=== PATIENT | male | born 1970 | race Two or more races ===

== ENCOUNTER 2025-05-18 20:18 | Inpatient (IN) | payer MEDICAID ==
[~2025-05-18] VITALS: Ht 177.8 cm; Wt 108.6 kg
[~2025-05-18 20:18] MED LIST: ATEN-60 PO; DOCU-265 PO; TAMS-35 PO
--- NOTE | 2025-05-18 21:21 | ED.PDOC ---
GI ASSESSMENT HPI Comments 54y M who presents to the ED for chief complaint of GI bleeding. Pt states he has been having bright red blood per rectum with noted blood in bowel movement for the past 5x days. Pt states today 3x blood in bowel movement episodes today. Pt otherwise denies any recent changes to diet or sick contacts. Pt has noted abdominal cramping but otherwise denies any other symptoms. Pt only has noted past medical history of HTN. Pt in the ED has noted BP of 154/109 but otherwise has noted stable vitals. Chief Complaint: GI Bleed Time Seen by MD: 21:00 Reviewed Notes: Medications, Allergies Allergies: Coded Allergies: NO KNOWN ALLERGIES (Unverified , 01/06/17) Home Meds Active Scripts Tamsulosin Hcl (Flomax) 0.4 Mg Cap, 0.4 MG PO QPM, #14 CAP Prov:JAGDEEP ROYAL MD 01/08/17 Docusate Sodium (Docusate Sodium) 100 Mg Cap, 100 MG PO BIDPRN PRN for FOR CONSTIPATION, #30 CAP Prov:JAGDEEP ROYAL MD 01/08/17 Reported Medications Atenolol (Atenolol) 25 Mg Tab, 25 MG PO DAILY for 30 Days, MG 01/06/17 Information Source: Patient, Spouse Mode of Arrival: Ambulatory Past Medical History PAST MEDICAL HISTORY: HTN Surgical History: Denies all surgeries Family History Family History: Unknown Social History Smoker: Non-Smoker Alcohol: Denies ETOH Use Drugs: Denies Drug Use Lives In: Home All Other Systems: Reviewed and Negative (see HPI) Physical Exam General Appearance: No Apparent Distress, Obese HEENT: Normal ENT Inspection, PERRL/EOMI Neck: Full Range of Motion, Non-Tender, Normal, Normal Inspection Respiratory: Chest Non-Tender, Lungs Clear, No Accessory Muscle Use, No Respiratory Distress, Normal Breath Sounds Cardiovascular: No Edema, No JVD, No Murmur, No Gallop, Normal Peripheral Pulses, Regular Rate/Rhythm Breast Exam: Deferred Gastrointestinal: No Organomegaly, No Pulsatile Mass, Normal Bowel Sounds, Soft, Tenderness Genitalia: Deferred Pelvic: Deferred Rectal: Deferred, Hemorrhoids, Other (Rectal bleeding bright red) Extremities: No calf tenderness, Normal capillary refill, Normal inspection, Normal range of motion, Non-tender, No pedal edema Neurologic: Alert, sales engagement manager II-XII nml as Tested, No Motor Deficits, Normal Affect, Normal Mood, No Sensory Deficits Cerebellar Function: Normal Reflexes: Normal Skin: Dry, Normal Color, Warm Peripheral Pulses: 1+ carotid (R), 1+ carotid (L) Lymphatic: No Adenopathy Was a procedure done? Was a procedure done?: No GI differential Dx Differential Diagnosis: Constipation, Diverticular disease, Gastroenteritis, GI hemorrhage, Inflammatory BD, Dehydration, Anemia, Stress Ulcer Other Differential Diagnosis colitis, hemorrhoids, GI bleed, X-Ray, Labs, Meds, VS Vital Signs Date Time Temp Pulse Resp B/P (MAP) Pulse Ox O2 Delivery O2 Flow Rate FiO2 05/18/25 20:19 98.6 77 18 154/109 97 98.6 Lab Test 05/18/25 21:08 Range/Units White Blood Count 6.8 4.4-10.8 10^3/uL Red Blood Count 4.73 4.5-5.90 10^6/uL Hemoglobin 14.5 13.5-17.5 g/dL Hematocrit 40.5 L 41.0-53.0 % Mean Corpuscular Volume 85.7 80.0-100.0 fL Mean Corpuscular Hemoglobin 30.6 28.0-32.0 pg Mean Corpuscular Hemoglobin Concent 35.7 32.0-36.0 g/dL Red Cell Distribution Width 14.1 11.8-14.3 % Platelet Count 219 140-450 10^3/uL Mean Platelet Volume 7.5 6.9-10.8 fL Neutrophils (%) (Auto) 51.2 37.0-80.0 % Lymphocytes (%) (Auto) 37.9 10.0-50.0 % Monocytes (%) (Auto) 7.8 0.0-12.0 % Eosinophils (%) (Auto) 2.5 0.0-7.0 % Basophils (%) (Auto) 0.6 0.0-2.0 % Neutrophils # (Auto) 3.5 1.6-8.6 10 ^3/uL Lymphocytes # (Auto) 2.6 0.4-5.4 10 ^3/uL Monocytes # (Auto) 0.5 0-1.3 10 ^3/uL Eosinophils # (Auto) 0.2 0-0.8 10 ^3/uL Basophils # (Auto) 0 0-0.2 10 ^3/uL Nucleated Red Blood Cells 0.1 % Sodium Level 142 136-145 mmol/L Potassium Level 4.2 3.5-5.1 mmol/L Chloride Level 108 H 98-107 mmol/L Carbon Dioxide Level 25 20-31 mmol/L Anion Gap 9 5-15 Blood Urea Nitrogen 13 9-23 mg/dL Creatinine 1.36 H 0.700-1.30 mg/dL Glomerular Filtration Rate Calc 63 >90 mL/min BUN/Creatinine Ratio 9.6 L 10.0-20.0 Serum Glucose 98 74-106 mg/dL Calcium Level 8.9 8.7-10.4 mg/dL X-Ray, Labs, Meds, VS Comment Course in the emergency department eventful patient came in because of the GI bleeding mostly red profuse CBC normal BNP pending CT abdomen pending Dr. Seymour to follow Time of 1ST Reevaluation: 21:30 Reevaluation 1ST: Unchanged Time of 2ND Reevaluation: 22:44 Reevaluation 2ND: Unchanged Consultation: PCP, GI Patient Education/Counseling: Diagnosis, Treatment, Prognosis, Need For Follow Up Family Education/Counseling: Diagnosis, Treatment, Prognosis, Need For Follow Up Assigned to Dr. dr seymour Change of Shift?: Yes SEPSIS Sepsis Screen Date sepsis recognized/suspect: May 18, 2025 Time Sepsis recognized/suspect: 2022 Recent Procedure: No On Antibiotic Therapy: No Respiratory Rate >20: No Heart Rate >90: No Temp<36 C (96.8 F) or >38.3 C: No SBP <90 or MAP <65 mmHG: No New Acute Mental Status Change: No Is the patient on CPAP, BIPAP,: No Physician Orders Heplock Iv (05/18/25 20:55) Sodium Chloride 0.9% (05/18/25 21:00) Ct Ab Pel With Iv Con Only (05/18/25 20:55) Hemoglobin & Hematocrit (05/18/25 22:41) Sodium Chloride 0.9% (05/18/25 23:00) Vital Signs Date Time Temp Pulse Resp B/P (MAP) Pulse Ox O2 Delivery O2 Flow Rate FiO2 05/18/25 20:19 98.6 77 18 154/109 97 98.6 Laboratory Tests Test 05/18/25 21:08 White Blood Count 6.8 10^3/uL (4.4-10.8) Departure 1 Departure Time of Disposition: 22:44 Impression: Primary Impression: Rectal bleeding Disposition: 09 ADMITTED INPATIENT Admit to: Tele Condition: Guarded Discharged With: Self Critical Care Note Critical Care Time?: No Stability Stability form required: No Heart Score Heart Score: Heart Score Response (Comments) Value History N/A 0 EKG N/A 0 Age 45-64 1 Risk Factors 1 or 2 risk factors 1 Troponin N/A 0 Total 2 I personally scribed for GALI MONTEMAYOR MD ([email or web address]) on 05/18/25 at 21:21. Electronically submitted by Yaw Sampson ([facility]). GALI MONTEMAYOR MD May 18, 2025 21:21 JULIET SEYMOUR DO May 18, 2025 22:51
[2025-05-18 21:25] LABS: Hematocrit 40.5 % (41.0-53.0); Hemoglobin 14.5 g/dL (13.5-17.5); Mean Corpuscular Hemoglobin 30.6 pg (28.0-32.0); Mean Corpuscular Volume 85.7 fL (80.0-100.0); Nucleated Red Blood Cells % 0.1 %
[2025-05-18 21:48] LABS: Potassium 4.2 mmol/L (3.5-5.1); Sodium 142 mmol/L (136-145)
[2025-05-18 21:49] LABS: Anion Gap 9 (5-15); Carbon Dioxide 25 mmol/L (20-31)
[2025-05-18 21:50] LABS: Calcium 8.9 mg/dL (8.7-10.4)
[2025-05-18 21:54] LABS: BUN/Creatinine Ratio 9.6 (10.0-20.0); Blood Urea Nitrogen 13 mg/dL (9-23); Glucose 98 mg/dL (74-106)
[2025-05-18 22:13] LABS: Chloride 108 mmol/L (98-107)
[2025-05-18 23:16] LABS: Hematocrit 42.2 % (41.0-53.0); Hemoglobin 14.7 g/dL (13.5-17.5)
--- NOTE | 2025-05-18 23:29 | DVH ---
Exam: CT CT AB PEL WITH IV CON ONLY History: Refused rectal bleeding Comparison Study: None TECHNIQUE: A digital safety physician image was obtained. During the uneventful, intravenous administration of c ontrast material, multislice data acquisition was obtained through the abdomen and pelvis. The data s et was subsequently reconstructed into multiplanar reformats. RADIATION DOSE: CTDI vol 22.71 mGy. DLP 1477.44 mGy.cm Findings: Lungs: The lung bases are clear. Liver: Diffuse hypoattenuation of the liver suggestive of hepatic steatosis. Spleen: Unremarkable. Pancreas: Unremarkable. Gallbladder: Contracted in appearance. Adrenals: Unremarkable Kidneys: Unremarkable. Pelvic Viscera: Mild prostatomegaly. Vasculature: Unremarkable. Retroperitoneum: Unremarkable. Bowel: No bowel obstruction. Nonspecific fluid-filled appearance of the small bowel. The appendix is normal. Musculoskeletal: Unremarkable. Soft tissues: Unremarkable Impression: 1. Nonspecific fluid-filled small bowel may reflect enteritis in the appropriate clinical setting. 2. Additional findings as detailed.
--- NOTE | 2025-05-18 23:46 | DVHHPRES ---
History of Present Illness Resident Creating Document: JEREL ROBERTS RESIDENT History of Present Illness History of Present Illness (HPI): A 54-year-old male with a past medical history of hypertension, sleep apnea, and chronic kidney disease presented with complaints of blood in the stools for the past six days. He reports that the bleeding has decreased over the last two days. He denies any pain in the anal area or while passing stools. He complains of associated lower abdominal pain, fatigue, and tiredness. He denies fever and shortness of breath. Digital rectal rectal examination done in the ER revealed dried blood. Past Medical History (PMH): hypertension, sleep apnea, and chronic kidney disease Past Surgical History (PSH): Sinus surgery 25 years ago Family history (FH): Family history of thyroid cancer in sister EtOH: Denies alcohol use Smoking /Vaping: Denies smoking Recreational Drugs: Denies recreational drug use Residence: Lives with family Home Medications: Losartan Allergies: No known allergies PCP: Dr. Carmen Lamb Specialist relevant to admission: Gastro Review of Systems Review of Systems General: patient denies fever, fatigue, weaknes, sweating, any recent changes in appetite and weight HEENT: No headaches, visiual changes, hearing loss, tinnitus, nasal congestion and discharge, and sore throat. Cardiovascular: Denies chest pain, palpitations, dyspnea on exertion, orthopnea, or claudication. Respiratory: No cough, and wheezing. Gastrointestinal: Complaints of abdominal pain, blood in stool Genitourinary: No dysuria, hematuria, discharge, frequency, urgency, nocturia, incontinence, and urinary retention. Endocrine: No heat or cold intolerance, polydipsia, polyuria, and polyphagia. Neurological: No dizziness, extremity weakness and numbness, tremors, gait disturbance, seizures, and memory impairment. Psychiatric: Denies depression, anxiety,or insomnia. Musculoskeletal: Denies neck pain, stiffness and swelling, back pain, muscle weakness, joint pain, stiffness, swelling, or limited range of motion. Skin: No rashes, itching, skin lesion, changes in hair, nail, skin texture and breast. Hematologic/Lymphatic: Denies easy bruising, bleeding tendencies, or lymph node enlargement. Allergies: Coded Allergies: NO KNOWN ALLERGIES (Unverified , 01/06/17) Medications Current Medications Medications Dose Ordered Sig/Krishna Route Start Time Stop Time Status Last Admin Dose Admin Acetaminophen 650 mg Q6HP PRN PO 05/18/25 23:45 UNV Exam Vital Signs Vital Signs Date Time Temp Pulse Resp B/P (MAP) Pulse Ox O2 Delivery O2 Flow Rate FiO2 05/18/25 20:19 98.6 77 18 154/109 97 98.6 Exam General Appearance: Alert, Oriented X3, Cooperative, No acute distress HEENT: Atraumatic, PERRLA, EOMI, Mucous membrane moist/pink Respiratory: Clear to auscultation, Normal air movement Cardiovascular: Regular rate, Normal S1, Normal S2, No murmurs, no chest wall tenderness Abdominal: Diffuse abdominal tenderness present Extremities: No clubbing, No cyanosis, No edema, Normal pulses, No tenderness/swelling Skin: No rashes, No breakdown, No significant lesion Neuro: Normal gait, Normal speech, Strength at 5/5 X4 ext, Normal tone, Sensation intact, Cranial nerves 3-12 NL, Reflexes 2+ Psych/Mental Status: Mental status NL, Mood NL Digital rectal examination revealed dried blood with no masses Labs/Xrays Labs Test 05/18/25 23:01 05/18/25 21:08 Range/Units Hemoglobin 14.7 13.5-17.5 g/dL Hematocrit 42.2 41.0-53.0 % White Blood Count 6.8 4.4-10.8 10^3/uL Red Blood Count 4.73 4.5-5.90 10^6/uL Mean Corpuscular Volume 85.7 80.0-100.0 fL Mean Corpuscular Hemoglobin 30.6 28.0-32.0 pg Mean Corpuscular Hemoglobin Concent 35.7 32.0-36.0 g/dL Red Cell Distribution Width 14.1 11.8-14.3 % Platelet Count 219 140-450 10^3/uL Mean Platelet Volume 7.5 6.9-10.8 fL Neutrophils (%) (Auto) 51.2 37.0-80.0 % Lymphocytes (%) (Auto) 37.9 10.0-50.0 % Monocytes (%) (Auto) 7.8 0.0-12.0 % Eosinophils (%) (Auto) 2.5 0.0-7.0 % Basophils (%) (Auto) 0.6 0.0-2.0 % Neutrophils # (Auto) 3.5 1.6-8.6 10 ^3/uL Lymphocytes # (Auto) 2.6 0.4-5.4 10 ^3/uL Monocytes # (Auto) 0.5 0-1.3 10 ^3/uL Eosinophils # (Auto) 0.2 0-0.8 10 ^3/uL Basophils # (Auto) 0 0-0.2 10 ^3/uL Nucleated Red Blood Cells 0.1 % Sodium Level 142 136-145 mmol/L Potassium Level 4.2 3.5-5.1 mmol/L Chloride Level 108 H 98-107 mmol/L Carbon Dioxide Level 25 20-31 mmol/L Anion Gap 9 5-15 Blood Urea Nitrogen 13 9-23 mg/dL Creatinine 1.36 H 0.700-1.30 mg/dL Glomerular Filtration Rate Calc 63 >90 mL/min BUN/Creatinine Ratio 9.6 L 10.0-20.0 Serum Glucose 98 74-106 mg/dL Calcium Level 8.9 8.7-10.4 mg/dL SEPSIS Sepsis Screen Date sepsis recognized/suspect: May 18, 2025 Time Sepsis recognized/suspect: 2022 Recent Procedure: No On Antibiotic Therapy: No Respiratory Rate >20: No Heart Rate >90: No Temp<36 C (96.8 F) or >38.3 C: No SBP <90 or MAP <65 mmHG: No New Acute Mental Status Change: No Is the patient on CPAP, BIPAP,: No Physician Orders Heplock Iv (05/18/25 20:55) Sodium Chloride 0.9% (05/18/25 21:00) Ct Ab Pel With Iv Con Only (05/18/25 20:55) Sodium Chloride 0.9% (05/18/25 23:00) Admit (05/18/25 23:34) Allergies (05/18/25 23:34) Code Status (05/18/25 23:34) Complete Blood Count (05/19/25 04:00) Comprehensive Metabolic Panel (05/19/25 04:00) Condition: Fair (05/18/25 23:34) Acetaminophen Tablet (Tylenol Tablet) (05/18/25 23:45) Pantoprazole Tablet (Protonix Tablet) (05/18/25 23:45) Vital Signs Date Time Temp Pulse Resp B/P (MAP) Pulse Ox O2 Delivery O2 Flow Rate FiO2 05/18/25 20:19 98.6 77 18 154/109 97 98.6 Laboratory Tests Test 05/18/25 21:08 White Blood Count 6.8 10^3/uL (4.4-10.8) Assessment/Plan Assessment/Plan Assessment and plan # Possible enteritis - CT abdomen - GI consult - IV ceftriaxone and metronidazole - Stool culture, WBC - Clear liquid diet - Protonix - Liver ultrasound # Lower GI bleed possibly infectious/inflammatory - CT abdomen - GI consult - IV ceftriaxone and metronidazole - Stool culture, WBC - Clear liquid diet - Protonix # Essential hypertension - Continue Losartan # Sleep apnea - Continue CPAP at night # Chronic kidney disease stage II - Monitor creatinine levels PUD prophylaxis: protonix 40mg DVT prophylaxis: brisk movement. Barriers to discharge: Medical diagnosis and management in progress. Patient lives with family. Independent for ADL. PCP: Dr. Carmen Lamb Specialist Relevant To Admission: GI Case discussed with Dr. Arenas. Code Status: Full Code. Complex patient care discussion needed. Spend total 35 minutes for bedside assessment, case discussion and management. Plan discussed with: Patient, Spouse My Orders Orders - JEREL ROBERTS RESIDENT Procedure Category Date Status Time Admit ADMIT 05/18/25 Transmitted 23:34 Allergies BATOOL 05/18/25 In Process 23:34 Code Status CODE 05/18/25 Transmitted 23:34 Complete Blood Count LAB 05/19/25 Verified 04:00 Comprehensive LAB 05/19/25 Verified Metabolic Panel 04:00 Condition: Fair BATOOL 05/18/25 In Process 23:34 Acetaminophen Tablet PHA 05/18/25 Logged (Tylenol Tablet) 23:45 Pantoprazole Tablet PHA 05/18/25 Logged (Protonix Tablet) 23:45 Date of Service: May 18, 2025 Billing Provider: SESAR ARENAS MD Common Visit Codes: 01941-BPFMJOH INP/OBS CARE (HIGH) Secondary Visit Codes: [id number] CARE PLAN 30 MINUTES JEREL ROBERTS RESIDENT May 18, 2025 23:46 HAILY CHILDS RESIDENT May 19, 2025 09:11
[2025-05-19] MEDS ORDERED: MORPHINE SULFATE INJ 2 MG/ml SYRG IV PRN (01:15)
[2025-05-19 02:07] LABS: Alanine Aminotransferase 38 U/L (7-40); Albumin 4.4 g/dL (3.2-4.8); Bilirubin, Total 0.4 mg/dL (0.2-1.0); Total Protein 6.9 g/dL (5.7-8.2)
[2025-05-19 02:16] LABS: Alkaline Phosphatase 41 U/L (46-116); Bilirubin, Direct < 0.1 mg/dL (<0.3)
--- NOTE | 2025-05-19 03:16 | DVH ---
CHEST RADIOGRAPH Indication: gi bleed Technique: Single frontal view of the chest was obtained COMPARISON: None FINDINGS: Lines and Tubes: None Lungs: Clear Pleura: No effusion. No pneumothorax. Cardiomediastinal contours: Unremarkable Bones: Unremarkable IMPRESSION: 1. No acute disease.
--- NOTE | 2025-05-19 03:40 | DVH ---
INDICATION: gi bleed TECHNIQUE: Multiple real-time sonographic images were obtained of the right upper quadrant. COMPARISON: None FINDINGS: The liver demonstrates diffusely increased echotexture without focal mass lesions. The live r measures 21.3 cm. Normal hepatopetal portal flow identified. No evidence of pleural effusion or ab dominal ascites. There is no intrahepatic or extrahepatic ductal dilatation. The common duct is not adequately visuali zed. The gallbladder is without evidence of stone or sludge. The gallbladder wall measures 0.2 cm and is w ithin normal limits. Negative sonographic alba's sign. The right kidney measures 11.4 cm. The right kidney is normal in contour, size, and shape. The echoge nicity is normal. There is no hydronephrosis. The pancreas is not well visualized due to overlying bowel gas. IMPRESSION: 1. Hepatic steatosis and hepatomegaly. Otherwise unremarkable right upper quadrant abdominal ultrasou nd.
[2025-05-19 06:03] LABS: Hematocrit 43.4 % (41.0-53.0); Hemoglobin 15.0 g/dL (13.5-17.5); Mean Corpuscular Hemoglobin 30.1 pg (28.0-32.0); Mean Corpuscular Volume 86.9 fL (80.0-100.0); Nucleated Red Blood Cells % 0.2 %
[2025-05-19 06:15] LABS: Anion Gap 10 (5-15); BUN/Creatinine Ratio 8.1 (10.0-20.0); Bilirubin, Total 0.4 mg/dL (0.2-1.0); Blood Urea Nitrogen 10 mg/dL (9-23); Calcium 9.2 mg/dL (8.7-10.4); Carbon Dioxide 26 mmol/L (20-31); Chloride 106 mmol/L (98-107); Glucose 99 mg/dL (74-106); Potassium 4.0 mmol/L (3.5-5.1); Sodium 142 mmol/L (136-145); Total Protein 7.6 g/dL (5.7-8.2)
[2025-05-19 06:28] VITALS: BP 159/96; PULSE 66; RESP 10; TEMP 98.3; O2SAT 96
[2025-05-19 06:28] LABS: Alanine Aminotransferase 40 U/L (7-40); Alkaline Phosphatase 44 U/L (46-116)
[2025-05-19 06:48] VITALS: BP 159/96; PULSE 66; RESP 12; TEMP 98.3; O2SAT 96
[2025-05-19] MEDS: PANTOPRAZOLE 40 MG TAB PO ONE (06:48)
[2025-05-19 06:49] LABS: Albumin 4.6 g/dL (3.2-4.8)
[2025-05-19] MEDS: SODIUM CHLORIDE 0.9% 1,000 ML IV ONE ×2 (09:46→09:48)
[2025-05-19] MEDS: IOHEXOL 300 MG/ML 100ML BOTTLE IJ ONE (09:46)
[2025-05-19] MEDS: PANTOPRAZOLE 40 MG/10 ML VIAL INJ IV SCH (09:52)
[2025-05-19 09:58] VITALS: BP 159/108; PULSE 76; RESP 18; TEMP 97.7; O2SAT 94
[2025-05-19 10:05] LABS: Urine Protein, UAD Negative (Negative)
[2025-05-19 11:19] LABS: INR 1.0 (0.9-1.15); Partial Thromboplastin Time 27.4 SEC (24.5-34.5); Prothrombin Time 10.6 sec (9.3-11.8)
[2025-05-19] MEDS: LOSARTAN POTASSIUM 50 MG TAB PO ONE (12:23)
--- NOTE | 2025-05-19 12:23 | DVHPNRES ---
Progress Note Date Seen: May 19, 2025 Resident Creating Document: MAKENNA SCHMIDT RESIDENT Medical Necessity Reason Pt with a Central, PICC or Fol: No Subjective Review of Systems Tree Silva is a 54-year-old male with history of hypertension and sleep apnea who came to the ED with a chief complaint of bleeding per rectum since 5-6 days. He mentioned he started noticing bright red blood in his stool which covered the entire stool 5-6 days back, the amount of blood has reduced gradually in the last 3-4 days, the patient still had a small amount of blood in the stool this morning. He does not have any pain in the rectum or pain with defecation. He complains of pain in the lower abdomen, no aggravating or relieving factors. He denies any nausea or vomiting, and any recent changes in his diet. CT abdomen showed enteritis and liver ultrasound showed hepatic steatosis and hepatomegaly. GI saw the patient and recommended outpatient colonoscopy. Past medical history: Hypertension, sleep apnea Past surgical history: Sinus surgery 25 years ago Home medications: Losartan 50 mg Social & Personal history: Lives at home with family, occasional alcohol intake, denies smoking and drug use Family History: History of thyroid cancer and breast cancer in sister Allergies: No known allergies Patient seen and examined at bedside. Patient is alert and oriented to time, place person and responding to all questions. Eyes: No Pain, No Vision change, Conjunctivae inflammation, No Eyelid inflammation, Redness in left eye on medial side ENT: No Ear pain, No Ear discharge, No Nose pain, No Nose discharge, No Nose congestion, No Mouth pain, No Mouth swelling, No Throat pain, No Throat swelling Cardiovascular: No Chest Pain, No Palpitations, No Orthopnea, No Paroxysmal No Dyspnea, No Edema, No Lt Headedness Respiratory: No Cough, No Dry, No Shortness of breath, No SOB with exertion, No Wheezing, No Hemoptysis, No Pleuritic Pain, No Sputum Gastrointestinal: No Nausea, No Vomiting, mild Abdominal Pain, blood in stools, No Diarrhea, No Constipation Genitourinary: No Dysuria, No Frequency, No Incontinence, No Hematuria, No Retention Objective vital signs Vital Sign Date Time Temp Pulse Resp B/P (MAP) Pulse Ox O2 Delivery O2 Flow Rate FiO2 05/19/25 09:58 97.7 76 18 159/108 (125) 94 97.7 05/19/25 06:55 Room Air* 0 21 medications Current Medications Medications Dose Ordered Sig/Krishna Route Start Time Stop Time Status Last Admin Dose Admin Acetaminophen 650 mg Q6HP PRN PO 05/18/25 23:45 Ceftriaxone Sodium 50 ml @ 100 mls/hr DAILY@09 IV 05/20/25 09:00 Metronidazole 100 ml @ 100 mls/hr Q8HR IV 05/19/25 06:00 05/19/25 06:22 100 MLS/HR Morphine Sulfate 1 mg Q6HP PRN IV 05/19/25 01:15 Pantoprazole Sodium 40 mg DAILY IV 05/19/25 10:00 05/19/25 09:52 40 MG Sodium Chloride 1,000 ml @ 75 mls/hr [id number] IV 05/19/25 10:30 Losartan Potassium 50 mg DAILY PO 05/20/25 10:00 Examination General Appearance: Cooperative. Well developed. Well nourished. Pterygium in left eye on the medial side. Head Exam: Normal inspection Neck Exam: Normal inspection. Non-tender. Normal alignment Pulmonary/Respiratory: Chest non-tender. Clear bilateral breath sounds, no crackles, no wheezing. Cardiovascular/Chest: Regular rate and rhythm. No murmurs. No JVD. Peripheral Pulses: 2+ Radial (R). 2+ Radial (L). 2+ Pedal (R). 2+ Pedal (L) Abdominal Exam: Normal bowel sounds. Soft. normal abdomen, no visible veins, t enderness in lower abdomen. No hepatospenomegaly. No masses Ankle Exam: Negative ankle edema Lower extremities: Negative lower extremity edema Neuro/Mental Status: A&O x4. Coherent. Thoughts/Psych: Normal thought pattern. Appropriate mood and affect. Good judgement and insight Skin Exam: Normal inspection. Normal color. Warm. Dry laboratory and microbiology Laboratory Tests 05/19/25 04:26 Test 05/19/25 04:26 Range/Units Serum Glucose 99 74-106 mg/dL Labs and/or images reviewed: Labs reviewed by me, Image(s) reviewed by me Problem List/Assessment/Plan Problem List/Assessment/Plan Lower GI bleed/ Hematochezia Acute enteritis Possible IBD -CT abdomen-Nonspecific fluid-filled small bowel may reflect enteritis in the appropriate clinical setting. -Liver US-Hepatic steatosis and hepatomegaly -ordered stool bacterial culture, stool WBCs -follow H&H -GI consult, pending -IV Protonix -clear liquid diet -rectal exam showed no anal fissures/tags, no hemorrhoids but seen dried blood to the finger TRISTAN,likely due to VMN -IVF -follow lab -avoid nephrotoxic agents Hypertension, controlled -continue losartan Hepatic steatosis Sleep apnea PUD prophylaxis: protonix DVT prophylaxis: not indicated Goals of care: Full code, discussed for >23 minutes Plan discussed with Dr Christian Plan discussed with: Patient My Orders My Orders Orders - MAKENNA SCHMIDT RESIDENT Procedure Category Date Status Time Sodium Chloride 0.9% PHA 05/19/25 In Process 10:30 Erythrocyte LAB 05/19/25 Logged Sedimentation Rate 10:26 Losartan Tablet PHA 05/20/25 In Process (Cozaar Tablet) 10:00 Type And Screen BBK 05/19/25 Logged 10:26 MAKENNA SCHMIDT RESIDENT May 19, 2025 12:23 MYRNA POOL RESIDENT May 20, 2025 09:50
[2025-05-19] MEDS: SODIUM CHLORIDE 0.9% 1,000 ML IV SCH (12:24)
--- NOTE | 2025-05-19 13:20 | DVHINCON2 ---
GI Consult Consult Note GI consult note Date of Consultation: 05/19/2025 Chief Complaint: GI bleed Referring Physician: Dr. Moody H&P: 54-year-old male with past medical history of hypertension, sleep apnea and chronic kidney disease presented to ER with complains of red blood in his stool for the past six days. Patient admits that the bleeding has decreased over the past two days. No rectal pain. Has mild lower abdominal pain. Unsure if he has any hemorrhoids. Patient has an outpatient referral for gastro group for possible elective colonoscopy Past Medical History: hypertension, sleep apnea, and chronic kidney disease Past Surgical History: Sinus surgery 25 years ago Social History: NO smoking, drinking ETOH and use of illegal drugs. Family History: Noncontributory Review of Systems: Constitutional: no fever, chill, weight loss HEENT: no eye pain, no hearing loss, no oral lesion, no scleral icterus Heart: no chest pain, no chest pressure Lung: no cough, no dyspnea with exertion Abdomen: see HPI Physical exam: General: NAD, AAOX3 Chest: lung leslie clear to auscultation Heart: RRR, no murmur Abdomen: non-distended, no tenderness to palpation, +BS Labs: Labs Test 05/19/25 11:54 05/19/25 10:38 05/19/25 09:30 05/19/25 08:49 Range/Units Erythrocyte Sedimentation Rate 8 0-20 mm/hr Prothrombin Time 10.6 9.3-11.8 sec Prothrombin Time INR 1.00 0.9-1.15 Activated Partial Thromboplast Time 27.4 24.5-34.5 SEC Urine Color Light-yellow Yellow Urine Clarity Clear Clear Urine pH 6.0 5.0-9.0 Urine Specific [place] 1.027 1.001-1.035 Urine Protein Negative Negative Urine Ketones Negative Negative Urine Blood Negative Negative /uL Urine Nitrite Negative Negative Urine Bilirubin Negative Negative Urine Urobilinogen Normal Negative mg/dL Urine Leukocyte Esterase Negative Negative /uL Urine RBC <1 0 - 3 /hpf Urine Microscopic WBC < 1 0-3 /HPF Urine Squamous Epithelial Cells None seen <5 /hpf Urine Bacteria None seen None Seen /hpf Urine Mucus Few None Seen Urine Glucose Normal Normal mg/dL Stool for White Cells None seen Test 05/19/25 08:14 05/19/25 04:26 05/18/25 21:08 Range/Units Lactic Acid Level 1.4 0.4-2.0 mmol/L White Blood Count 6.7 4.4-10.8 10^3/uL Red Blood Count 4.99 4.5-5.90 10^6/uL Hemoglobin 15.0 13.5-17.5 g/dL Hematocrit 43.4 41.0-53.0 % Mean Corpuscular Volume 86.9 80.0-100.0 fL Mean Corpuscular Hemoglobin 30.1 28.0-32.0 pg Mean Corpuscular Hemoglobin Concent 34.6 32.0-36.0 g/dL Red Cell Distribution Width 14.0 11.8-14.3 % Platelet Count 227 140-450 10^3/uL Mean Platelet Volume 7.7 6.9-10.8 fL Neutrophils (%) (Auto) 57.8 37.0-80.0 % Lymphocytes (%) (Auto) 32.6 10.0-50.0 % Monocytes (%) (Auto) 6.0 0.0-12.0 % Eosinophils (%) (Auto) 3.0 0.0-7.0 % Basophils (%) (Auto) 0.6 0.0-2.0 % Neutrophils # (Auto) 3.9 1.6-8.6 10 ^3/uL Lymphocytes # (Auto) 2.2 0.4-5.4 10 ^3/uL Monocytes # (Auto) 0.4 0-1.3 10 ^3/uL Eosinophils # (Auto) 0.2 0-0.8 10 ^3/uL Basophils # (Auto) 0 0-0.2 10 ^3/uL Nucleated Red Blood Cells 0.2 % Sodium Level 142 136-145 mmol/L Potassium Level 4.0 3.5-5.1 mmol/L Chloride Level 106 98-107 mmol/L Carbon Dioxide Level 26 20-31 mmol/L Anion Gap 10 5-15 Blood Urea Nitrogen 10 9-23 mg/dL Creatinine 1.23 0.700-1.30 mg/dL Glomerular Filtration Rate Calc 71 >90 mL/min BUN/Creatinine Ratio 8.1 L 10.0-20.0 Serum Glucose 99 74-106 mg/dL Calcium Level 9.2 8.7-10.4 mg/dL Total Bilirubin 0.4 0.2-1.0 mg/dL Aspartate Amino Transferase (AST) 27 13-40 U/L Alanine Aminotransferase (ALT) 40 7-40 U/L Alkaline Phosphatase 44 L 46-116 U/L Total Protein 7.6 5.7-8.2 g/dL Albumin 4.6 3.2-4.8 g/dL Direct Bilirubin < 0.1 <0.3 mg/dL Imaging: CT abdomen pelvis Impression: 1. Nonspecific fluid-filled small bowel may reflect enteritis in the appropriate clinical setting. 2. Additional findings as detailed. Liver ultrasound IMPRESSION: 1. Hepatic steatosis and hepatomegaly. Otherwise unremarkable right upper quadrant abdominal ultrasound. Assessment: GI bleed Acute enteritis Hepatic steatosis Plan: Discussed with Dr. Rojas Stool for culture and WBC Continue IV antibiotics Full liquid advance to soft mechanical diet as tolerated Monitor labs Outpatient colonoscopy recommended. Please recall GI services if bleeding worsens Plan discussed with patient at bedside and RN Thank you for this consult Date of Service: May 19, 2025 Billing Provider: INGRID MUSTAFA Common Visit Codes: CONSULT ONLY Consultation Codes: [id number] CONSULT <60MIN INGRID MUSTAFA May 19, 2025 13:20
[2025-05-19] MEDS: ACETAMINOPHEN 325 MG TAB PO PRN (14:00)
[2025-05-19 14:26] VITALS: BP 151/100; PULSE 74; RESP 16; TEMP 98.7; O2SAT 94
[2025-05-19 20:00] VITALS: PULSE 73; RESP 16; O2SAT 95
[2025-05-19 21:20] VITALS: BP 145/96; PULSE 73; RESP 16; TEMP 98; O2SAT 95
[2025-05-20 01:25] VITALS: BP 138/80; PULSE 76; RESP 17; TEMP 97.7; O2SAT 95
[2025-05-20 04:34] LABS: Anion Gap 11 (5-15); Calcium 8.8 mg/dL (8.7-10.4); Carbon Dioxide 24 mmol/L (20-31); Chloride 105 mmol/L (98-107); Potassium 3.9 mmol/L (3.5-5.1); Sodium 140 mmol/L (136-145)
[2025-05-20 04:40] LABS: BUN/Creatinine Ratio 10.1 (10.0-20.0); Blood Urea Nitrogen 12 mg/dL (9-23); Glucose 100 mg/dL (74-106)
[2025-05-20 04:48] LABS: Hematocrit 42.3 % (41.0-53.0); Hemoglobin 14.9 g/dL (13.5-17.5); Mean Corpuscular Hemoglobin 30.3 pg (28.0-32.0); Mean Corpuscular Volume 85.9 fL (80.0-100.0); Nucleated Red Blood Cells % 0.2 %
[2025-05-20 05:02] VITALS: BP 150/105; PULSE 76; RESP 17; TEMP 97.8; O2SAT 95
[2025-05-20 08:00] VITALS: PULSE 71; RESP 18; O2SAT 96
[2025-05-20 09:00] VITALS: BP_SYST 131; BP_SYST 153; BP_DIAS 111; BP_DIAS 74; PULSE 71; PULSE 83; RESP 16; RESP 18; TEMP 98.7; TEMP 98.9; O2SAT 95; O2SAT 96
[2025-05-20] MEDS: LOSARTAN POTASSIUM 50 MG TAB PO SCH (09:08)
[2025-05-20 13:00] VITALS: BP 159/100; PULSE 77; RESP 16; TEMP 98.5; O2SAT 96
--- NOTE | 2025-05-20 13:10 | DVHPN2 ---
Subjective Patient admits to feeling better Able to tolerate diet No nausea vomiting Bowel movement this a.m. with very few drops of red blood Changes from previous H/P or p: No Changes Objective Vitals Vital Signs Date Time Temp Pulse Resp B/P (MAP) Pulse Ox O2 Delivery O2 Flow Rate FiO2 05/20/25 09:08 151/92 05/20/25 09:00 98.7 71 18 96 98.7 05/20/25 08:00 Room Air* 0 21 Intake/Output Intake and Output 05/20/25 07:00 Intake Total 1250 ml Balance 1250 ml Intake IV Total 1250 ml General Appearance: Alert, Oriented X3, Cooperative, No acute distress, mild distress, moderate distress, severe distress, Other Lungs: Clear to auscultation, Normal air movement, Other Cardiovascular: Regular rate, Normal S1, Normal S2, No murmurs, Gallops, Rubs, Other Abdomen: Normal bowel sounds, Soft, No tenderness, No hepatospenomegaly, No masses, Other Medications Current Medications Medications Dose Ordered Sig/Krishna Route Start Time Stop Time Status Last Admin Dose Admin Acetaminophen 650 mg Q6HP PRN PO 05/18/25 23:45 05/19/25 14:00 650 MG Ceftriaxone Sodium 50 ml @ 100 mls/hr DAILY@09 IV 05/20/25 09:00 05/20/25 08:59 100 MLS/HR Metronidazole 100 ml @ 100 mls/hr Q8HR IV 05/19/25 06:00 05/20/25 06:31 100 MLS/HR Morphine Sulfate 1 mg Q6HP PRN IV 05/19/25 01:15 Pantoprazole Sodium 40 mg DAILY IV 05/19/25 10:00 05/20/25 09:04 40 MG Sodium Chloride 1,000 ml @ 75 mls/hr [id number] IV 05/19/25 10:30 05/20/25 04:23 75 MLS/HR Losartan Potassium 50 mg DAILY PO 05/20/25 10:00 05/20/25 09:08 50 MG Laboratory Results Laboratory Tests 05/20/25 03:51 Chemistry Test 05/20/25 03:51 Calcium Level 8.8 mg/dL (8.7-10.4) Urinalysis Test 05/19/25 09:30 Urine Color Light-yellow (Yellow) Urine Clarity Clear (Clear) Urine pH 6.0 (5.0-9.0) Urine Specific [place] 1.027 (1.001-1.035) Urine Protein Negative (Negative) Urine Ketones Negative (Negative) Urine Blood Negative /uL (Negative) Urine Nitrite Negative (Negative) Urine Bilirubin Negative (Negative) Urine Urobilinogen Normal mg/dL (Negative) Urine Leukocyte Esterase Negative /uL (Negative) Urine RBC <1 /hpf (0 - 3) Urine Microscopic WBC < 1 /HPF (0-3) Urine Squamous Epithelial Cells None seen /hpf (<5) Urine Bacteria None seen /hpf (None Seen) Urine Mucus Few (None Seen) Urine Glucose Normal mg/dL (Normal) Microbiology Microbiology Date/Time Source Procedure Growth Status 05/19/25 08:49 Stool Stool Culture - Preliminary Resulted 05/19/25 08:49 Stool Shiga Toxin I & II Pending Resulted Labs and/or images reviewed: Labs reviewed by me, Image(s) reviewed by me Assessment/Plan Assessment/Plan GI bleed Acute enteritis Hepatic steatosis Plan: Discussed with Dr. Rojas Stool WBC none seen Continue antibiotics Advance to regular diet Outpatient GI follow-up in 3-4 weeks Plan discussed with: Patient, Spouse Date of Service: May 20, 2025 Billing Provider: INGRID MUSTAFA Common Visit Codes: [id number] INP/OBS CARE(HIGH) INGRID MUSTAFA May 20, 2025 13:10
--- NOTE | 2025-05-20 13:56 | DVHDSRES ---
Discharge Summary Date of Admission Resident Creating Document: MAKENNA SCHMIDT RESIDENT May 18, 2025 at 23:34 Date of Discharge: May 20, 2025 Admitting Diagnosis rectal bleeding Labs/Diagnostic Data: Laboratory Results Test 05/20/25 03:51 05/19/25 11:54 05/19/25 10:38 05/19/25 09:30 White Blood Count 5.4 10^3/uL (4.4-10.8) Red Blood Count 4.92 10^6/uL (4.5-5.90) Hemoglobin 14.9 g/dL (13.5-17.5) Hematocrit 42.3 % (41.0-53.0) Mean Corpuscular Volume 85.9 fL (80.0-100.0) Mean Corpuscular Hemoglobin 30.3 pg (28.0-32.0) Mean Corpuscular Hemoglobin Concent 35.2 g/dL (32.0-36.0) Red Cell Distribution Width 13.9 % (11.8-14.3) Platelet Count 211 10^3/uL (140-450) Mean Platelet Volume 7.6 fL (6.9-10.8) Neutrophils (%) (Auto) 56.0 % (37.0-80.0) Lymphocytes (%) (Auto) 33.1 % (10.0-50.0) Monocytes (%) (Auto) 7.0 % (0.0-12.0) Eosinophils (%) (Auto) 3.2 % (0.0-7.0) Basophils (%) (Auto) 0.7 % (0.0-2.0) Neutrophils # (Auto) 3.0 10 ^3/uL (1.6-8.6) Lymphocytes # (Auto) 1.8 10 ^3/uL (0.4-5.4) Monocytes # (Auto) 0.4 10 ^3/uL (0-1.3) Eosinophils # (Auto) 0.2 10 ^3/uL (0-0.8) Basophils # (Auto) 0 10 ^3/uL (0-0.2) Nucleated Red Blood Cells 0.2 % Sodium Level 140 mmol/L (136-145) Potassium Level 3.9 mmol/L (3.5-5.1) Chloride Level 105 mmol/L (98-107) Carbon Dioxide Level 24 mmol/L (20-31) Anion Gap 11 (5-15) Blood Urea Nitrogen 12 mg/dL (9-23) Creatinine 1.19 mg/dL (0.700-1.30) Glomerular Filtration Rate Calc 74 mL/min (>90) BUN/Creatinine Ratio 10.1 (10.0-20.0) Serum Glucose 100 mg/dL (74-106) Calcium Level 8.8 mg/dL (8.7-10.4) Erythrocyte Sedimentation Rate 8 mm/hr (0-20) Prothrombin Time 10.6 sec (9.3-11.8) Prothrombin Time INR 1.00 (0.9-1.15) Activated Partial Thromboplast Time 27.4 SEC (24.5-34.5) Urine Color Light-yellow (Yellow) Urine Clarity Clear (Clear) Urine pH 6.0 (5.0-9.0) Urine Specific [place] 1.027 (1.001-1.035) Urine Protein Negative (Negative) Urine Ketones Negative (Negative) Urine Blood Negative /uL (Negative) Urine Nitrite Negative (Negative) Urine Bilirubin Negative (Negative) Urine Urobilinogen Normal mg/dL (Negative) Urine Leukocyte Esterase Negative /uL (Negative) Urine RBC <1 /hpf (0 - 3) Urine Microscopic WBC < 1 /HPF (0-3) Urine Squamous Epithelial Cells None seen /hpf (<5) Urine Bacteria None seen /hpf (None Seen) Urine Mucus Few (None Seen) Urine Glucose Normal mg/dL (Normal) Test 05/19/25 08:49 05/19/25 08:14 05/19/25 04:26 05/18/25 21:08 Stool for White Cells None seen Lactic Acid Level 1.4 mmol/L (0.4-2.0) Total Bilirubin 0.4 mg/dL (0.2-1.0) Aspartate Amino Transferase (AST) 27 U/L (13-40) Alanine Aminotransferase (ALT) 40 U/L (7-40) Alkaline Phosphatase 44 U/L (46-116) Total Protein 7.6 g/dL (5.7-8.2) Albumin 4.6 g/dL (3.2-4.8) Direct Bilirubin < 0.1 mg/dL (<0.3) Other Laboratory Tests 05/20/25 03:51 Brief Hx & Hospital Course: [place], Tree is a 54-year-old male with history of hypertension and sleep apnea who came to the ED with the chief complaint of bleeding per rectum since 5-6 days. He mentioned he started noticing bright red blood in his stool which covered the entire stool 5-6 days back, the amount of blood has reduced gradually in the last 3-4 days, the patient still had a small amount of blood in the stool this morning. He does not have any pain in the rectum or pain with defecation. He complains of pain in the lower abdomen, no aggravating or relieving factors. He denies any nausea or vomiting, and any recent changes in his diet. CT abdomen showed enteritis and liver ultrasound showed hepatic steatosis and hepatomegaly. GI saw the patient and recommended outpatient colonoscopy. On evaluation today, patient did not have any abdominal pain. He mentioned there was very little blood in the stool this morning. GI saw the patient and asked to continue with the same management and slowly advance diet and follow up outpatient for colonoscopy in 3-4 weeks. Vitals were stable and labs within range. All recommendations were thoroughly explained to the patient and he demonstrated understanding of the same. All questions were answered and all concerns were addressed. Patient was discharged home in a stable condition and was asked to follow-up with PCP and GI in 3-4 weeks. Past medical history: Hypertension, sleep apnea Past surgical history: Sinus surgery 25 years ago Home medications: Losartan 50 mg Social & Personal history: Lives at home with family, occasional alcohol intake, denies smoking and drug use Family History: History of thyroid cancer and breast cancer in sister Allergies: No known allergies General Appearance: Cooperative. Well developed. Well nourished. Pterygium in left eye on the medial side. Head Exam: Normal inspection Neck Exam: Normal inspection. Non-tender. Normal alignment Pulmonary/Respiratory: Chest non-tender. Clear bilateral breath sounds, no crackles, no wheezing. Cardiovascular/Chest: Regular rate and rhythm. No murmurs. No JVD. Peripheral Pulses: 2+ Radial (R). 2+ Radial (L). 2+ Pedal (R). 2+ Pedal (L) Abdominal Exam: Normal bowel sounds. Soft. normal abdomen, no visible veins, mild tenderness in lower abdomen. No hepatospenomegaly. No masses Ankle Exam: Negative ankle edema Lower extremities: Negative lower extremity edema Neuro/Mental Status: A&O x4. Coherent. Thoughts/Psych: Normal thought pattern. Appropriate mood and affect. Good judgement and insight Skin Exam: Normal inspection. Normal color. Warm. Dry Discharge plan -follow-up with GI -follow-up with PCP Operations or Procedures 1.PROCEDURE(s): ABPLIV - CT AB PEL WITH IV CON ONLY REASON: Refused rectal bleeding ORDER NUMBER(s): [id number], ACCESSION NUMBER(s): [id number] Impression: 1. Nonspecific fluid-filled small bowel may reflect enteritis in the appropriate clinical setting. 2. Additional findings as detailed. 2.PROCEDURE(s): CXR1 - CHEST XRAY 1 VIEW REASON: gi bleed ORDER NUMBER(s): [id number], ACCESSION NUMBER(s): [id number] IMPRESSION: 1. No acute disease. 3.PROCEDURE(s): LIVUS - LIVER REASON: gi bleed ORDER NUMBER(s): [id number], ACCESSION NUMBER(s): [id number] IMPRESSION: 1. Hepatic steatosis and hepatomegaly. Otherwise unremarkable right upper quadrant abdominal ultrasound. Condition at Discharge: Fair Final Diagnosis/Problems List Lower GI bleed/ Hematochezia Acute enteritis,likely viral etiology Hepatic steatosis Possible IBD,follow up outpatient colonoscopy TRISTAN,likely due to VM[facility] Hypertension, controlled Sleep apnea Discharge Disposition: Home Discharge Instruct/Medications Diet: Cardiac 2g Na,low cholest Activity: No Restrictions, As Tolerated Follow Up/Referral: Follow-up with PCP Follow-up with GI for colonoscopy Follow-up in [facility] clinic Scheduled Atenolol (Atenolol), 25 MG PO DAILY, (Reported) Tamsulosin Hcl (Flomax), 0.4 MG PO QPM Scheduled PRN Docusate Sodium (Docusate Sodium), 100 MG PO BIDPRN PRN for FOR CONSTIPATION Discharge Statement: "Patient was advised to return to the ER or call 911 if any headaches, dizziness, shortness of breath, chest pain, abdominal pain, bleeding, fevers, or worsening of medical condition. Patient was counseled about treatment plan, medications, possible side effects, patientverbalized understanding. All questions were answered to the best of my ability. This discharge took greater then 30 minutes in planning, reviewing documentation, counseling the patient, and discussing with other team members." ASSESSMENT ASSESSMENT Assessment Lower GI bleed/hematochezia TRISTAN likely due to VM[facility] MAKENNA SCHMIDT RESIDENT May 20, 2025 13:56
[2025-05-20 14:03] VITALS: BP 151/92; TEMP 37.1
== END 2025-05-20 14:50 | disposition home or self-care (01) | DRG 249 ==
LOC: ER 20:18 → OVERFLOW 23:34 → EAST 05-19 18:59
PROVIDERS: ADMIT Student in an Organized Health Care Education/Training Program; ATTEND Emergency Medicine
DX: A08.4 Viral intestinal infection, unspecified (principal); N17.0 Acute kidney failure with tubular necrosis; K92.1 Melena; R16.0 Hepatomegaly, not elsewhere classified; K76.0 Fatty (change of) liver, not elsewhere classified; I12.9 Hypertensive chronic kidney disease with stage 1 through stage 4 chronic kidney disease, or unspecified chronic kidney disease; G47.30 Sleep apnea, unspecified; N18.2 Chronic kidney disease, stage 2 (mild)
CPT/HCPCS: 36415; 71045; 74177; 76705; 80048; 80053; 80076; 81001; 83605; 85014; 85018; 85025; 85048; 85610; 85652; 85730; 86850; 86900; 86901; 87045; 87427; G0378; J2470; J3490